=== PATIENT | female | born 1980 | race American Indian/Alaskan Native ===

== ENCOUNTER 2016-12-18 15:12 | Inpatient (IN) | payer MEDICARE ==
--- NOTE | 2016-12-18 17:05 | Emergency Department Report ---
HPI - General Time Seen by Provider: 12/18/16 16:47 - HPI HPI: Room 10 The patient is a 36-year-old female presenting with a chief complaint of chest pain. The patient states for 1 week she has had intermittent left-sided chest pain described as tightness associated with slight shortness of breath. Patient states she went to see her offset printer today (Dr. Sifuentes) when [facility] to the emergency department because her blood sugar was elevated. Patient states she has had pain in the back of her legs felt weak. Patient denies nausea/vomiting or pleurisy. Patient admits to occasional cough that is productive of yellow sputum for the past 2 days. The patient currently gives her chest pain a score of 8/10. The patient states her last stress test and cardiac catheterization occurred 8 years ago. Location: [see above] Duration: [see above] Quality: Tightness Severity: 8/10 Modifying factors: [see above] Context: [see above] Mode of transportation: [not driving] ED Past Medical Hx - Past Medical History Hx Hypertension: Yes Hx CVA: Yes Hx Diabetes: Yes Hx Deep Vein Thrombosis: Yes Hx Pulmonary Embolism: Yes Hx Renal Disease: Yes Hx Asthma: Yes Additional medical history: lupus, fibromyalgia, reynauds, hypothyroidism - Surgical History Hx Cholecystectomy: Yes Additional Surgical History: ivc filter - Family History Family history: no significant - Social History Smoking Status: Never Smoker Substance Use Type: None - Medications Home Medications: Home Medications Medication Instructions Recorded Confirmed Last Taken Type Albuterol *Only Ed* [Proventil 1 puff IH PRN PRN 03/24/14 03/24/14 Unknown History 0.5% NEBS] Albuterol [Proventil Tab] 1 tab PO DAILY 03/24/14 03/24/14 03/24/14 History Alendronate Sodium [Fosamax] 35 mg PO QWEEK 03/24/14 03/24/14 Unknown History FLUoxetine HCL [PROzac] 40 mg PO QDAY 03/24/14 03/24/14 03/24/14 History Famotidine [Pepcid] 30 mg PO DAILY 03/24/14 03/24/14 03/24/14 History Losartan [Cozaar] 100 mg PO QDAY 03/24/14 03/24/14 03/24/14 History Warfarin [Coumadin] 5 mg PO DAILY 03/24/14 03/24/14 03/24/14 History predniSONE [Deltasone] 10 mg PO DAILY 03/24/14 03/24/14 03/24/14 History Clonidine 0.2 mg PO HS 12/18/16 12/18/16 Unknown History Insulin Aspart See Protocol SUB-Q HS 12/18/16 12/18/16 Unknown History Insulin Glargine See Protocol SUB-Q DAILY 12/18/16 12/18/16 Unknown History Metoprolol 50 mg PO DAILY 12/18/16 12/18/16 Unknown History amLODIPine 10 mg PO DAILY 12/18/16 12/18/16 Unknown History ED Review of Systems ROS: Stated complaint: CHEST PAIN/HYPERGLYCEMIA Other details as noted in HPI Comment: All other systems reviewed and negative Constitutional: denies: chills, fever Eyes: denies: eye pain, eye discharge, vision change ENT: denies: ear pain, throat pain Respiratory: cough, shortness of breath Cardiovascular: chest pain Endocrine: no symptoms reported Gastrointestinal: denies: abdominal pain, nausea, diarrhea Genitourinary: denies: urgency, dysuria, discharge Musculoskeletal: denies: back pain, joint swelling, arthralgia Skin: denies: rash, lesions Neurological: denies: headache, weakness, paresthesias Psychiatric: denies: anxiety, depression Hematological/Lymphatic: denies: easy bleeding, easy bruising Physical Exam - Physical Exam Vital Signs: Vital Signs 12/18/16 16:29 Temperature 98.5 F Pulse Rate 82 Respiratory 16 Rate Blood Pressure 164/97 [Left] O2 Sat by Pulse 97 Oximetry Physical Exam: GENERAL: The patient is well-developed well-nourished female lying on stretcher not appearing to be in acute distress. [] HEENT: Normocephalic. Atraumatic. Extraocular motions are intact. Patient has moist mucous membranes. NECK: Supple. Trachea midline CHEST/LUNGS: Clear to auscultation. There is no respiratory distress noted. HEART/CARDIOVASCULAR: Regular. There is no tachycardia. There is no gallop rub or murmur. ABDOMEN: Abdomen is soft, nontender. Patient has normal bowel sounds. There is no abdominal distention. SKIN: There is no rash. There is no edema. There is no diaphoresis. NEURO: The patient is awake, alert, and oriented. The patient is cooperative. The patient has normal speech MUSCULOSKELETAL: There is no evidence of acute injury. ED Course Vital Signs 12/18/16 16:29 Temperature 98.5 F Pulse Rate 82 Respiratory 16 Rate Blood Pressure 164/97 [Left] O2 Sat by Pulse 97 Oximetry ED Medical Decision Making - Lab Data Result diagrams: 12/18/16 17:25 12/18/16 17:25 Laboratory Tests 12/18/16 12/18/16 12/18/16 17:25 17:25 17:25 WBC 10.2 RBC 3.45 L Hgb 10.6 Hct 32.7 MCV 95 MCH 31 MCHC 33 RDW 12.5 L Plt Count 308 Lymph % (Auto) 5.4 L [place]idan % (Auto) 6.0 Eos % (Auto) 0.4 Baso % (Auto) 0.3 Lymph # 0.6 L Sheridan # 0.6 Eos # 0.0 Baso # 0.0 Seg Neutrophils % 87.9 H Seg Neutrophils # 9.0 H PT INR APTT D-Dimer VBG pH 7.416 Sodium 136 L Potassium 4.9 Chloride 97.5 L Carbon Dioxide 22 Anion Gap 21 BUN 21 H Creatinine 1.1 Estimated GFR > 60 BUN/Creatinine Ratio 19.09 Glucose 406 H Calcium 8.8 Troponin T < 0.010 12/18/16 17:25 WBC RBC Hgb Hct MCV MCH MCHC RDW Plt Count Lymph % (Auto) [place] % (Auto) Eos % (Auto) Baso % (Auto) Lymph # [place]idan # Eos # Baso # Seg Neutrophils % Seg Neutrophils # PT 12.5 INR 0.94 APTT 22.2 L D-Dimer 180.39 VBG pH Sodium Potassium Chloride Carbon Dioxide Anion Gap BUN Creatinine Estimated GFR BUN/Creatinine Ratio Glucose Calcium Troponin T - EKG Data -: EKG Interpreted by Me EKG shows normal: sinus rhythm Rate: normal - EKG Data When compared to previous EKG there are: changes noted Interpretation: nonspecific ST-T wave orquidea (new T-wave inversion in lead V2 when compared to previous EKG dated 03/25/2014) - Differential Diagnosis ACS, PE, pericarditis, GERD Critical care attestation.: If time is entered above; I have spent that time in minutes in the direct care of this critically ill patient, excluding procedure time. ED Disposition Clinical Impression: Chest pain, Hyperglycemia Disposition: OP ADMITTED IP TO THIS HOSP Is pt being admited?: Yes Does the pt Need Aspirin: Yes Condition: Fair Instructions: Chest Pain (ED) Referrals: PRIMARY CARE,MD [Primary Care Provider] - 3-5 Days Time of Disposition: 18:29 (Dr Lu notified)
--- NOTE | 2016-12-18 17:37 | Admit Criteria Form ---
Admission Criteria Documentation: CHEST PAIN Clinical Indications for Admission to Inpatient Care (Place 'X' for any and all applicable criteria): Admission is indicated for chest pain and ANY ONE of the following(1)(2)(3)(4)(5 ): [ ]I. Angina with acute coronary syndrome (Also use Myocardial Infarction or Angina guideline) [ ]II. Hemodynamic instability [X]III. Angina needing acute intervention as indicated by ALL of the following( 11)(12): [ ]a) Unstable angina is present as indicated by angina that is ANY ONE of the following: [ ]i) New onset [ ]ii) Nocturnal [ ]iii) Prolonged at rest [ ]iv) Progressive [X]b) Angina warrants acute intervention as indicated by ANY ONE of the following: [ ]i) Recurrent angina (e.g, not responding as previously to treatment) [ ]ii) Angina at rest or with low-level activities despite initial medical therapy [ ]iii) New or presumably new ST-segment depression on ECG [ ]iv) Signs or symptoms of heart failure (eg, dyspnea, pulmonary edema) [ ]v) New or worsening mitral regurgitation [ ]vi) Hemodynamic instability [ ]vii) Dangerous arrhythmia (eg, sustained ventricular tachycardia) [ ]viii) History of percutaneous coronary intervention within 6 months [ ]ix) History of coronary artery bypass graft surgery [ ]x) CANELO risk score of 2 or greater[A] [X]xi) History of Diabetes(14) [ ]xii) High-risk cardiac ischemia findings on noninvasive testing (e.g, echocardiogram, treadmill testing, nuclear scan) [ ]xiii) Chronic renal insufficiency (ie, estimated GFR less than 60 mL/min/1.732m) [ ]xiv) Left ventricular ejection fraction less than 40% [ ]IV. Evidence of MN (eg, cardiac biomarkers positive, ST-segment elevation on ECG) also use Myocardial Infarction Criteria Form. [ ]V. Pulmonary edema [ ]. Respiratory distress [ ]VII. Chest pain indicative of serious diagnosis other than coronary artery disease (eg, aortic dissection) [ ]VIII. Contraindications and/or Inappropriate clinical situations for Observational Care in patients with Chest Pain, when ANY ONE of the following is required: [ ]a) Patient with risk factor for pulmonary embolism, acute coronary syndrome and myocardial infarction (18) [ ]b) Patient with Pulmonary embolism require an average LOS of 4.3 days, therefore emergency department observation management is inappropriate 18,23 [ ]c) Painful condition/s in the elderly, have the highest rate of recidivism after emergency department observation management (10.8%) 20,21,22 [ ]d) Elevated cardiac biomarker requires intensive and exhaustive care (19) [ ]IX. General contraindications and/or Inappropriate clinical situations for Observational Care in patients with Chest Pain, when ANY ONE of the following is required: [ ]a) Prediction of prolongation of LOS based on ANY ONE of the following may be considered as a contraindication for observational care 2, 3, 4, 5, 6, 7, 8, 9, 10, 11 [ ]i) Age > 65 yrs. [ ]ii) Patient arriving by ambulance [ ]iii) Patient with high acuity [ ]iv) Patient requiring vital sign monitoring [ ]v) Patient on IV medication [ ]b) Systolic blood pressures 180mmHg 3,12 [ ]c) Patient with altered mental status including delirium and other alteration of consciousness, (3) [ ]d) Patient whose discharge disposition will be to a prison home or rehabilitation home should not be managed in Emergency Department Observation Unit. CMS rule requires 3 days hospital stay before such placement. 3,13 [ ]e) Patient with failure to thrive due to broad array of etiologies 3,16,17 [ ]f) Inability to ambulate 3,14 Extended stay beyond goal length of stay may be needed for (1)(28): [ ]a) Specific condition diagnosed after evaluation (eg, pulmonary embolism, aortic dissection) [ ]b) Unstable angina [ ]c) Continued suspicion of acute coronary syndrome with inability to complete needed cardiac evaluation (eg, patient clinically unable to undergo stress testing) [ ]d) Myocardial infarction (Contents from ANGINA and CHEST PAIN clinical indications for admission to inpatient care have been integrated in this form) The original [employer] [employer] content created by [email or web address] has been revised. The portions of the content which have been revised are identified through the use of italic text or in bold, and [facility] [email or web address] has neither reviewed nor approved the modified material. All other unmodified content is copyright [employer] [employer]. Please see references footnoted in the original [employer] [employer] edition 2016 Admission Criteria Met: Yes
[2016-12-18 17:42] LABS: Basophils % (Auto) 0.3 % (0.0-1.8); Eosinophils % (Auto) 0.4 % (0.0-4.3); Hematocrit 32.7 % (30.3-42.9); Hemoglobin 10.6 gm/dl (10.1-14.3); Mean Corpuscular HGB Conc 33 % (30-34); Mean Corpuscular Hemoglobin 31 pg (28-32); Mean Corpuscular Volume 95 fl (79-97); Platelet Count 308 K/mm3 (140-440); Red Blood Count 3.45 M/mm3 (3.65-5.03); Red Cell Distribution Width 12.5 % (13.2-15.2); White Blood Count 10.2 K/mm3 (4.5-11.0)
[2016-12-18 17:58] LABS: INR 0.94 (0.87-1.13); Partial Thromboplastin Time 22.2 Sec. (24.2-36.6)
[2016-12-18 18:04] LABS: Anion Gap 21 mmol/L; BUN/Creatinine Ratio 19.09; Blood Urea Nitrogen 21 mg/dL (7-17); Calcium 8.8 mg/dL (8.4-10.2); Carbon Dioxide 22 mmol/L (22-30); Chloride 97.5 mmol/L (98-107); Glucose 406 mg/dL (65-100); Potassium 4.9 mmol/L (3.6-5.0); Sodium 136 mmol/L (137-145)
[2016-12-18] MEDS ORDERED: ASPIRIN PO ONE (18:11)
[2016-12-18] MEDS ORDERED: MORPHINE IV ONE (18:18)
[2016-12-18] MEDS ORDERED: ZOFRAN IV ONE (18:25)
[2016-12-18] MEDS ORDERED: SODIUM CHLORIDE FLUSH SYRINGE 10 ML IV PRN (23:03)
--- NOTE | 2016-12-18 23:03 | Event Note ---
Date: 12/18/16 See history and physical in H&P. Acute coronary syndrome rule out NE protocol. Lexiscan in the morning. Uncontrolled diabetes. Adjust dosage. Hypertension Lupus Gastroesophageal reflux disease Depression Osteoporosis Anticoagulation with warfarin
[2016-12-18] MEDS ORDERED: ALBUTEROL IH PRN (23:06)
[2016-12-18] MEDS ORDERED: PROVENTIL IH PRN (23:20)
[2016-12-18] MEDS ORDERED: NITROSTAT SL PRN (23:32)
[2016-12-18] MEDS: NOVOLOG SUB-Q SCH (23:50)
[2016-12-19 00:06] LABS: Creatine Kinase 48 units/L (30-135)
--- NOTE | 2016-12-19 00:07 | History and Physical Report ---
CHIEF COMPLAINT: Left-sided chest pain. HISTORY OF PRESENT ILLNESS: A 36-year-old with multiple medical problems including lupus, insulin-dependent diabetes, hypertension sent by the Cardiology office for high blood sugars and left-sided chest pain. The patient has been having intermittent chest pain for the last one week described as tightness 5/10 on a scale of 1/10. The patient also has high blood sugar also pain in all the joints. The patient has lupus, occasional cough productive of yellow sputum for 2 days. No diaphoresis. No palpitations. No exacerbating factors. The patient's pain ranges from 5-8 on a scale of 1-10. PAST MEDICAL HISTORY: As mentioned, hypertension, cerebrovascular accident, insulin-dependent diabetes, deep vein thrombosis, pulmonary embolism, end-stage chronic kidney disease, asthma, lupus, fibromyalgia, Raynaud's disease, and hypothyroidism. PAST SURGICAL HISTORY: IVC filter, cholecystectomy. FAMILY HISTORY: Hypertension. SOCIAL HISTORY: Does not smoke. No alcohol, no recreational drugs. CURRENT MEDICATIONS: Proventil nebulizer treatments q.i.d. p.r.n., Proventil tablet 1 tablet daily, furosemide 35 mg q. weekly, Prozac 40 mg p.o. daily, famotidine ___ mg p.o. daily, losartan 100 mg p.o. daily, Coumadin 5 mg p.o. daily, prednisone 10 mg p.o. daily, clonidine 0.2 p.o. daily, insulin dosage not known, metoprolol 50 mg daily, amlodipine 10 mg daily. REVIEW OF SYSTEMS: Significant for constitutional muscle aches all over. PHYSICAL EXAMINATION: GENERAL: No weight loss, no weight gain, no fever, no chills. HEENT: No sore throat. No postnasal drip. NECK: No neck stiffness. CARDIOVASCULAR AND RESPIRATORY: Chest pain left-sided present. 5-8 on a scale of 1-10, intermittent in nature for 1 week. No diaphoresis. No shortness of breath. GASTROINTESTINAL: No nausea, no vomiting, no diarrhea. GENITOURINARY: No dysuria, no flank pain. MUSCULOSKELETAL: Has joint pains all over and muscle pains all over. SKIN: No rashes. CENTRAL NERVOUS SYSTEM: No syncope, no seizures. PSYCHIATRIC: Denies anxiety, but depression. HEMATOLOGIC/LYMPHATIC: Denies easy bleeding or bruising. A 14-point review of systems done. PHYSICAL EXAMINATION: GENERAL: Well-developed, well-nourished female moderately obese. VITAL SIGNS: Temperature 98.5, pulse is 82, respirations 16, blood pressure 164/97, and sats are 97%. HEENT: Unremarkable. Pupils equal and reactive. NECK: Supple, no lymphadenopathy, no thyromegaly. LUNGS: Clear to auscultation and percussion. Good air entry. CARDIOVASCULAR: S1, S2 heard. No gallop, no murmur, no rub. Apical impulse in left fifth intercostal space and midclavicular line. ABDOMEN: Soft and benign. No hepatosplenomegaly. No guarding, no rigidity. Hernial orifices are normal. EXTREMITIES: Good pedal pulses. No pedal edema. Joints are normal. CENTRAL NERVOUS SYSTEM: Alert and oriented x 4, nonfocal exam. Sensory system normal. Cranial nerves are normal. SKIN: Normal. LABORATORY DATA: White count is 10,200, H and H is 10.6 and 32.7, platelet count 308,000. Sodium is 136, potassium is 4.9, chloride is 97.5, bicarbonate is 22, BUN and creatinine 21 and 1.1, glucose is 104.6. EKG shows sinus rhythm. Nonspecific ST-T wave changes, no acute changes. ASSESSMENT AND PLAN: 1. Acute coronary syndrome, rule out myocardial infarction, chest pain protocol. Lexiscan in the morning. 2. Uncontrolled insulin-dependent diabetes. The patient was started on high-dose sliding scale protocol. Check hemoglobin A1c. Adjust insulin dose at the time of discharge. 3. Asthma. Continue albuterol. 4. Osteoporosis. Continue Fosamax 35 mg q. weekly. 5. Depression. Continue Prozac 40 mg daily. 6. Hypertension. Continue Cozaar 100 mg daily and clonidine 0.2 p.o. at bedtime and metoprolol 50 mg daily, amlodipine 10 mg p.o. daily. 7. Anticoagulation. Continue Coumadin 5 mg daily. 8. Gastroesophageal reflux disease. Continue famotidine ___ mg p.o. daily. 9. Deep venous thrombosis prophylaxis. The patient not started on Lovenox because of Coumadin. JOB# [id number] VSM/NTS
[2016-12-19 00:08] LABS: Creatine Kinase MB < 1.0 ng/mL (0.0-4.0)
[2016-12-19] MEDS: TYLENOL PO PRN (00:15)
[2016-12-19] MEDS ORDERED: NOVOLOG SUB-Q SCH ×3 (07:30→22:00)
[2016-12-19] MEDS ORDERED: INSULIN ASPART 12 UNIT SUB-Q SCH (07:30)
[2016-12-19 07:48] LABS: Creatine Kinase 49 units/L (30-135)
[2016-12-19 08:10] LABS: Creatine Kinase MB < 1.0 ng/mL (0.0-4.0)
[2016-12-19] MEDS ORDERED: LEXISCAN IV ONE ×2 (08:10→08:25)
[2016-12-19] MEDS ORDERED: COZAAR PO ONE ×2 (08:24→08:30)
[2016-12-19] MEDS: NOVOLOG SUB-Q SCH ×7 (08:30→21:31)
[2016-12-19] MEDS ORDERED: NORVASC PO ONE (08:30)
[2016-12-19] MEDS ORDERED: LOPRESSOR PO ONE (08:30)
[2016-12-19] MEDS: MORPHINE IV PRN ×3 (08:38→19:56)
--- NOTE | 2016-12-19 09:56 | XRay Report ---
AP CHEST: HISTORY: chest pain AP view of the chest demonstrates a normal mediastinal and cardiac contour with clear lungs and normal bony and soft tissue structures. IMPRESSION: Unremarkable AP chest.
[2016-12-19] MEDS ORDERED: INSULIN GLARGINE SUB-Q SCH (10:00)
[2016-12-19] MEDS ORDERED: PROVENTIL PO SCH (10:00)
--- NOTE | 2016-12-19 11:42 | Treadmill Report ---
The patient was brought to the cardiology lab and nuclear stress test is performed by administering Lexiscan. The patient tolerated the procedure well. Post-stress images reveal fairly homogeneous distribution of the isotope. Mild apical reversibility is noted and this is of questionable significance. Excellent systolic function is noted with no wall motion abnormalities. The ejection fraction is about 70%. IMPRESSION: 1. Excellent systolic function with no wall motion abnormalities. 2. Minimal apical reversibility if of questionable significance. 3. Suggest clinical correlation. JOB# [id number] KBM/NTS
--- NOTE | 2016-12-19 12:04 | Event Note ---
Date: 12/19/16 Cardiology note dictated. #1 chest pain Patient complains of chest pain for the last 2 weeks but this is somewhat atypical. Patient had a stress thallium test which is noted to be essentially negative except for mild apical abnormality. Excellent systolic function is noted. Continue medical management #2 uncontrolled hypertension Add hydralazine for better blood pressure control #3 uncontrolled diabetes #4 systemic lupus #5 history of cerebrovascular accident #6 history of recurrent DVT and pulmonary embolism status post IVC filter placement. Possible recurrent DVT patient is currently on Coumadin and continue the same noncompliance with Coumadin note.. Patient is strongly advised to continue the medications appropriately. #7 history of renal failure currently renal function is stable. #8 status post cholecystectomy #9 history of peptic ulcer disease #[address] Snyder problem with participate in the care of this young lady will follow with you. BK. Collins
[2016-12-19] MEDS: PEPCID PO SCH (12:29)
[2016-12-19] MEDS: DELTASONE PO SCH (12:31)
[2016-12-19] MEDS: PROzac PO SCH (12:31)
[2016-12-19] MEDS: APRESOLINE PO SCH ×2 (13:24→21:27)
--- NOTE | 2016-12-19 13:24 | Progress Note ---
Assessment and Plan Assessment and plan: Patient is a 36-year-old female with history of lupus, insulin-dependent diabetes mellitus, hypertension presents to the hospital with complaint of chest pain generalized body pain with complaint of possible flareup of lupus. She unfortunately is noncompliant with her medications was noted to have severely elevated hypertension. She did proceed to a stress test and also an echocardiogram which were unremarkable except for a mild apical abnormality noted by cardiology. No intervention is recommended at this time. * Atypical chest pain likely costochondritis * SLE ? flare * DVT, pulmonary embolism status post IVC filter * Hypertensive urgency * Morbid obesity BMI of 40 * Uncontrolled diabetes mellitus * Asthma * Depression * Fibromyalgia * Hypertension * Secondary coagulopathy patient on Coumadin noncompliant subtherapeutic INR * Peptic ulcer disease * CKD stable * History of CVA Plan * Continue supportive care, cardiac input appreciated. * Continue home blood pressure medications. Continue addition of hydralazine by cardiology. Extensive discussion with the patient considering history of CVA DVTs about compliance of medication patient verbalized understanding * Monitor for the next 24 hours of blood pressure improved will discharge home. * Adjust pain medications * May need steroids for short duration. * Adjust insulin * DVT and GI prophylaxis History Interval history: Patient seen and examined, in no acute distress, still complaining of chest pain , joint pain, back pain, and calf pain. Reports generalized body swelling Hospitalist Physical - Constitutional Vitals: Temp Pulse Resp BP Pulse Ox 98.1 F 78 20 174/103 98 12/19/16 07:00 12/19/16 10:34 12/19/16 07:00 12/19/16 10:34 12/19/16 07:00 General appearance: Present: no acute distress, well-nourished, other (obese) - EENT Eyes: Present: PERRL, EOM intact ENT: hearing intact, clear oral mucosa - Neck Neck: Present: supple, normal ROM - Respiratory Respiratory effort: normal - Cardiovascular Rhythm: regular Heart Sounds: Present: S1 & S2 - Extremities Extremities: no ischemia, pulses intact, pulses symmetrical Peripheral Pulses: within normal limits - Abdominal General gastrointestinal: soft, non-tender, tender - Integumentary Integumentary: Present: clear, warm - Psychiatric Psychiatric: appropriate mood/affect - Neurologic Neurologic: CNII-XII intact - Allied Health Allied health notes reviewed: nursing Results - Labs CBC & Chem 7: 12/18/16 17:25 12/18/16: Labs: Laboratory Last Values WBC 10.2 K/mm3 (4.5-11.0) 12/18/16: RBC 3.45 M/mm3 (3.65-5.03) L 12/18/16: Hgb 10.6 gm/dl (10.1-14.3) 12/18/16: Hct 32.7 % (30.3-42.9) 12/18/16: MCV 95 fl (79-97) 12/18/16: MCH 31 pg (28-32) 12/18/16: MCHC 33 % (30-34) 12/18/16: RDW 12.5 % (13.2-15.2) L 12/18/16: Plt Count 308 K/mm3 (140-440) 12/18/16: Lymph % (Auto) 5.4 % (13.4-35.0) L 12/18/16: [place] % (Auto) 6.0 % (0.0-7.3) 12/18/16: Eos % (Auto) 0.4 % (0.0-4.3) 12/18/16: Baso % (Auto) 0.3 % (0.0-1.8) 12/18/16: Lymph # 0.6 K/mm3 (1.2-5.4) L 12/18/16: [place] # 0.6 K/mm3 (0.0-0.8) 12/18/16: Eos # 0.0 K/mm3 (0.0-0.4) 12/18/16: Baso # 0.0 K/mm3 (0.0-0.1) 12/18/16: Seg Neutrophils % 87.9 % (40.0-70.0) H 12/18/16: Seg Neutrophils # 9.0 K/mm3 (1.8-7.7) H 12/18/16: PT 12.5 Sec. (12.2-14.9) 12/18/16 17: INR 0.94 (0.87-1.13) 12/18/16 17:25 APTT 22.2 Sec. (24.2-36.6) L 12/18/16 17:25 D-Dimer 180.39 ng/mlDDU (0-234) 12/18/16 17:25 VBG pH 7.416 (7.320-7.420) 12/18/16 17:25 Sodium 136 mmol/L (137-145) L 12/18/16 17:25 Potassium 4.9 mmol/L (3.6-5.0) 12/18/16 17:25 Chloride 97.5 mmol/L (98-107) L 12/18/16 17:25 Carbon Dioxide 22 mmol/L (22-30) 12/18/16 17:25 Anion Gap 21 mmol/L 12/18/16 17:25 BUN 21 mg/dL (7-17) H 12/18/16 17:25 Creatinine 1.1 mg/dL (0.7-1.2) 12/18/16 17:25 Estimated GFR > 60 ml/min 12/18/16 17:25 BUN/Creatinine Ratio 19.09 % 12/18/16 17:25 Glucose 406 mg/dL (65-100) H 12/18/16 17:25 POC Glucose 362 (70-105) H 12/18/16 23:26 Calcium 8.8 mg/dL (8.4-10.2) 12/18/16 17:25 Total Creatine Kinase 49 units/L (30-135) 12/19/16 07:04 CK-MB (CK-2) < 1.0 ng/mL (0.0-4.0) 12/19/16 07:04 CK-MB (CK-2) Rel Index 2.0 (0-4) 12/19/16 07:04 Troponin T < 0.010 ng/mL (0.00-0.029) 12/19/16 07:04 - Imaging and Cardiology Chest x-ray: image reviewed (negative)
[2016-12-19] MEDS ORDERED: COUMADIN PO SCH (17:00)
--- NOTE | 2016-12-19 19:32 | Consultation ---
CARDIOLOGY EVALUATION HISTORY OF PRESENT ILLNESS: This is a 36-year-old female seen for cardiac evaluation because of chest pain. The patient has been having intermittent chest pains for the past 2 weeks, described as a dull aching discomfort at times related to activity at other times has no relationship to any activity. She also complains about some right-sided pain falls periodically. The patient does complaint about a periodic exertional dyspnea. The patient is a nonsmoker and nonalcoholic. Known to have hypertension for 10 years, diabetes for about 5 years. The patient has multiple medical issues. She was apparently diagnosed to have lupus and following that she had to use steroids and according to her this is what started her problem with the diabetes. The patient had previous cerebrovascular accidents in 2003 and 2012. In 2004, she had DVT and pulmonary embolism and she had recurrent DVT and she was advised to stay on anticoagulants indefinitely. However, two weeks ago she ran out of Coumadin and she stopped taking her Coumadin. She complains about leg pains. She is also known to have chronic kidney disease. The patient also had a cholecystectomy in the past. IVC filter has been placed in the past. REVIEW OF SYSTEMS: HEAD, EYES, EARS, NOSE AND THROAT: No symptoms. ENDOCRINE: The patient is known to have diabetes. RESPIRATORY: She gives history of COPD and apparently the problem started in 2012 when she had pneumonia and respiratory failure ended up being on a ventilator. Subsequent to that, she has been having exertional dyspnea. GASTROINTESTINAL: She gives history of peptic ulcer disease in the past and had cholecystectomy. GENITOURINARY: No symptoms. CENTRAL NERVOUS SYSTEM: The patient had a cerebrovascular accident in the past x 2 as mentioned earlier. SKIN: No symptoms. PSYCHIATRIC: No symptoms. HEME/ONC: No symptoms. PHYSICAL EXAMINATION: GENERAL: Adult moderately obese female, in no acute distress, pleasant and cooperative. HEAD, EYES, EARS, NOSE, AND THROAT: Unremarkable. NECK: Supple. No thyromegaly. Both carotids are palpable and equal. Neck veins are flat. CHEST: Symmetrical. LUNGS: Clear. HEART: S1, S2 are heard well. No S3. No significant murmurs are appreciated. ABDOMEN: Soft, nontender. EXTREMITIES: Increased pigmentation is noted. Both lower extremities more so on the right side. The patient does have mild calf tenderness bilaterally. This is more on the right side. DIAGNOSTIC STUDIES: EKG shows sinus rhythm with no acute abnormalities, cardiac enzymes are noted to be negative. LABORATORY DATA: Hemoglobin 10.6, hematocrit 32.7, INR 0.94. Sodium 136, potassium 4.9, BUN 21, creatinine 1.1, blood sugar 406. Cardiac enzymes are negative. CURRENT CARDIAC MEDICATIONS: Amlodipine 10 mg, clonidine 0.2, losartan 100 mg daily, metoprolol 50 mg twice a day, nitroglycerin p.r.n., and warfarin 7.5 daily. IMPRESSION: 1. Chest pain, pain itself is somewhat atypical. The patient had a nuclear stress test done today that shows excellent systolic function with no evidence of significant ischemia. Mild apical reversibility is noted and this is of questionable significance. Continue medical management for the time being. 2. Hypertension. Blood pressure is doing better than before, but not well-controlled as of yet. I will add hydralazine 25 mg 3 times a day. 3. Diabetes, uncontrolled. 4. Systemic lupus. 5. History of renal failure. 6. History of chronic obstructive pulmonary disease. 7. Recurrent DVT and pulmonary embolism medication noncompliance. PLAN: The patient is seen for cardiac evaluation. Clinically, she appears to be stable. So far, cardiac status is stable. Today's stress thallium test is noted to be negative for significant ischemia. In view of the atypical chest pain and only mild abnormalities on the scan, we will continue medical management. The patient is advised strongly to be compliant with medications. The patient will be followed closely along with you. Thank you, Dr. Lu for allowing me to participate in the care of this pleasant young lady. JOB# [id number] MARQUISE/NTS
[2016-12-19 20:05] LABS: Bilirubin,Urine NEG (Negative); Blood,Urine LG (Negative); Ketones,Urine NEG (Negative); Leukocyte Esterase,Urine NEG (Negative); Nitrite,Urine NEG (Negative); Protein,Urine <15 mg/dL mg/dL (Negative); Urobilinogen,Urine < 2.0 mg/dL (<2.0)
[2016-12-19] MEDS: LOPRESSOR PO SCH (21:28)
[2016-12-19] MEDS: CATAPRES PO SCH (21:28)
[2016-12-19] MEDS ORDERED: CATAPRES PO SCH (22:00)
[2016-12-19] MEDS ORDERED: LEVEMIR SUB-Q SCH (22:00)
[2016-12-20] MEDS: MORPHINE IV PRN ×2 (02:09→09:10)
[2016-12-20] MEDS: APRESOLINE PO SCH ×2 (05:54→14:24)
[2016-12-20 05:57] LABS: INR 0.97 (0.87-1.13)
[2016-12-20] MEDS: NOVOLOG SUB-Q SCH ×4 (08:00→13:57)
--- NOTE | 2016-12-20 09:56 | Discharge Summary ---
Providers - Providers Date of Admission: 12/18/16 18:25 Date of discharge: 12/20/16 Attending physician: BRANDO BURKS MD 12/18/16 Consult to Cardiac Rehabilitation [CONS] Routine Reason For Exam: Phase I 12/18/16 23:03 Consult to Physician [CONS] Routine Consulting Provider: CARLINE FORD Reason For Exam: chest pain Place consult to:: CARLINE FORD Notified:: [facility] FROM ANSWERING SERVICE Phone number called:: [phone] Was contact made?: Yes Time called:: 07:02 12/19/16 05:51 Consult to Wound/ET Nurse [CONS] Routine Reason For Exam: wound eval Primary care physician: [employer] LE[employer]ER Hospitalization Reason for admission: chest pain Condition: Stable Hospital course: Patient is a 36-year-old female with history of lupus, insulin-dependent diabetes mellitus, hypertension presents to the hospital with complaint of chest pain generalized body pain with complaint of possible flareup of lupus. She unfortunately is noncompliant with her medications was noted to have severely elevated hypertension. She did proceed to a stress test and also an echocardiogram which were unremarkable except for a mild apical abnormality noted by cardiology. No intervention is recommended at this time. Patient was monitored due to elevated BP. extensive discussion for about 20 mins was had with the patient considering history of CVA DVTs about compliance of medication patient verbalized understanding. BP is improved. all meds renewed. she is to follow with PCP for INR checks, Pt understands this. 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 Warfarin importance was stressed. Discharge diagnosis * Atypical chest pain likely costochondritis * SLE ? flare * DVT, pulmonary embolism status post IVC filter * Hypertensive urgency * Morbid obesity BMI of 40 * Uncontrolled diabetes mellitus * Asthma * Depression * SOO * Fibromyalgia * Hypertension * Secondary coagulopathy patient on Coumadin noncompliant subtherapeutic INR * Peptic ulcer disease * CKD stable * History of CVA Disposition: DISCHARGED TO HOME OR SELFCARE Time spent for discharge: 35 MINS Core Measure Documentation - Palliative Care Palliative Care/ Comfort Measures: Not Applicable - Core Measures Any of the following diagnoses?: none - VTE Discharge Requirements Deep Vein Thrombosis/Pulmonary Embolism Present on Admission: Yes Has pt received <5 days of overlap therapy or INR<2.0: Yes Anticoagulant overlap therapy prescribed at discharge: No Contraindication No Overlap Therapy order at DC: Patient Noncompliance (patient with svt, also non compliant. also has an IVC filter.) Exam - Physical Exam Narrative exam: VITAL SIGNS: Reviewed. GENERAL: The patient appeared well nourished and normally developed, obese. Vital signs as documented. HEAD: No signs of head trauma. EYES: Pupils are equal. Extraocular motions intact. EARS: Hearing grossly intact. MOUTH: Oropharynx is normal. NECK: No adenopathy, no JVD. CHEST: Chest with clear breath sounds bilaterally. No wheezes, rales, or rhonchi. CARDIAC: Regular rate and rhythm. S1 and S2, without murmurs, gallops, or rubs. VASCULAR: No Edema. Peripheral pulses normal and equal in all extremities. ABDOMEN: Soft, without detectable tenderness. No sign of distention. No rebound or guarding, and no masses palpated. Bowel Sounds normal. MUSCULOSKELETAL: Good range of motion of all major joints. Extremities without clubbing, cyanosis or edema. NEUROLOGIC EXAM: Alert and oriented x 3. No focal sensory or strength deficits. Speech normal. Follows commands. PSYCHIATRIC: Mood normal. SKIN: No rash or lesions. - Constitutional Vitals: Temp Pulse Resp BP Pulse Ox 97.5 F L 60 18 141/73 98 12/20/16 08:00 12/20/16 08:00 12/20/16 08:00 12/20/16 08:00 12/20/16 08:00 Plan Activity: advance as tolerated, fall precautions Diet: low fat, diabetic Special Instructions: record daily BP diary, record blood sugar diary Additional Instructions: MUST FOLLOW WITH PCP FOR INR CHECK Q3 DAYS UNTIL STABLE Follow up with: PRIMARY CARE, [Primary Care Provider] - 3-5 Days Forms: Warfarin Discharge Instruction Prescriptions: cloNIDine [Catapres] 0.2 mg PO BID #30 tablet hydrALAZINE [Apresoline TAB] 25 mg PO Q8HR #90 tablet predniSONE [Deltasone] 20 mg PO DAILY #30 tablet Warfarin [Coumadin] 7.5 mg PO DAILY@1700 #30 tablet
[2016-12-20] MEDS ORDERED: NORVASC PO SCH (10:00)
[2016-12-20] MEDS ORDERED: LOPRESSOR PO SCH (10:00)
[2016-12-20] MEDS ORDERED: COZAAR PO SCH (10:00)
[2016-12-20] MEDS: DELTASONE PO SCH (10:57)
[2016-12-20] MEDS: PROzac PO SCH (10:57)
[2016-12-20] MEDS: PEPCID PO SCH (10:57)
[2016-12-20] MEDS: CATAPRES PO SCH (10:59)
[2016-12-20] MEDS: LOPRESSOR PO SCH (10:59)
--- NOTE | 2016-12-20 13:01 | Progress Note ---
Assessment and Plan Atypical pleuritic CP - Could be due to Lupus itself. H/O GERD+ BP under control. Also has Sleep apnea (not adequately treated). Pt has to loose weight. SOO has to be treated adequately.Cleared to D/C home from a cardiac standpoint.F /U with in office in 2 to 3 weeks. - Patient Problems (1) Morbid obesity with BMI of 40.0-44.9, adult Current Visit: Yes Status: Chronic (2) Hyperglycemia Current Visit: Yes Status: Acute (3) Diabetes Current Visit: No Status: Chronic Qualifiers: Diabetes mellitus type: D Diabetes mellitus complication status: D Diabetes mellitus complication detail: D Diabetic retinopathy severity: D Proliferative retinopathy type: P Diabetes mellitus macular edema: D Diabetes mellitus termite renewal inspector insulin use: D Laterality: L Chronic kidney disease stage: C (4) HTN (hypertension) Current Visit: No Status: Chronic Qualifiers: Hypertension type: H (5) SLE (systemic lupus erythematosus) Current Visit: No Status: Chronic (6) SOO (obstructive sleep apnea) Current Visit: Yes Status: Chronic Subjective Date of service: 12/20/16 Interval history: C/O atypical L chest pains.No ischemia in stress myocardial scan.CP increases on breathing ? pleuritic. Objective Vital Signs Temp Pulse Pulse Pulse Resp BP BP 12/20/16 10:59 60 141/73 12/20/16 10:58 60 141/73 12/20/16 10:57 60 141/73 12/20/16 08:00 97.5 F L 60 18 141/73 12/20/16 05:41 97.9 F 69 20 133/92 12/20/16 01:00 97.9 F 69 20 118/69 12/19/16 20:59 98.1 F 69 20 185/83 12/19/16 19:55 80 12/19/16 16:30 98 F 73 20 183/93 12/19/16 13:24 65 178/99 Pulse Ox 12/20/16 10:59 12/20/16 10:58 12/20/16 10:57 12/20/16 08:00 98 12/20/16 05:41 98 12/20/16 01:00 96 12/19/16 20:59 98 12/19/16 19:55 12/19/16 16:30 12/19/16 13:24 - Physical Examination General: No Apparent Distress, Other (morbidly obese.) HEENT: Positive: PERRL, EOMI, Normocephaly, Mucus Membranes Moist Neck: Positive: neck supple, trachea midline Cardiac: Positive: Reg Rate and Rhythm Lungs: Positive: clear to auscultation, Normal Breath Sounds Neuro: Positive: Grossly Intact Abdomen: Positive: Soft, Active Bowel Sounds Skin: Positive: Clear. Negative: Rash Musculoskeletal: No Fluid Collection, No Pain, Normal Range of Motion Extremities: Present: normal, upper extr. pulses, lower extr. pulses. Absent: edema - Labs and Meds Coagulation 12/20/16 Range/Units 05:23 PT 12.8 (12.2-14.9) Sec. INR 0.97 (0.87-1.13) - Imaging and Cardiology EKG: report reviewed, image reviewed - Telemetry EKG Rhythm: Sinus Rhythm
[2016-12-20] MEDS: TYLENOL PO PRN (14:21)
[2016-12-20 14:25] VITALS: BP 123/65
--- NOTE | 2016-12-21 07:50 | Vascular Lab Report ---
LOWER EXTREMITY VENOUS DUPLEX: REASON FOR EXAM: History of DVT. COMMENTS ON THE RIGHT: All veins visualized are freely compressible without evidence of internal echogenicity. Flow is spontaneous and phasic throughout. Thrombus noted in the greater saphenous vein from the knee to the thigh COMMENTS ON THE LEFT: All veins visualized are freely compressible without evidence of internal echogenicity. Flow is spontaneous and phasic throughout. IMPRESSION: No evidence of acute or chronic deep venous thrombosis in either lower extremity. Superficial thrombophlebitis in the right lower extremity
[2016-12-23 01:03] LABS: B-Hydroxybutyrate TNR mmol/L (0.2 - 0.28)
[2016-12-25] MEDS ORDERED: FOSAMAX PO SCH (10:00)
== END 2016-12-20 15:15 | disposition home or self-care (01) | DRG 206 ==
LOC: ED 15:12 → 4A 18:25
PROVIDERS: ADMIT Internal Medicine; ATTEND Internal Medicine
DX: M94.0 Chondrocostal junction syndrome [Tietze] (principal); Z68.41 Body mass index [BMI] 40.0-44.9, adult; D68.9 Coagulation defect, unspecified; E11.65 Type 2 diabetes mellitus with hyperglycemia; M32.9 Systemic lupus erythematosus, unspecified; M79.7 Fibromyalgia; E03.9 Hypothyroidism, unspecified; K21.9 Gastro-esophageal reflux disease without esophagitis; M81.0 Age-related osteoporosis without current pathological fracture; I16.0 Hypertensive urgency; E66.01 Morbid (severe) obesity due to excess calories; F32.9 Major depressive disorder, single episode, unspecified; K27.9 Peptic ulcer, site unspecified, unspecified as acute or chronic, without hemorrhage or perforation; N18.9 Chronic kidney disease, unspecified; E11.22 Type 2 diabetes mellitus with diabetic chronic kidney disease; I12.9 Hypertensive chronic kidney disease with stage 1 through stage 4 chronic kidney disease, or unspecified chronic kidney disease; G47.33 Obstructive sleep apnea (adult) (pediatric); Z90.49 Acquired absence of other specified parts of digestive tract; J44.9 Chronic obstructive pulmonary disease, unspecified; Z86.73 Personal history of transient ischemic attack (TIA), and cerebral infarction without residual deficits; Z91.14 Patient's other noncompliance with medication regimen; Z86.711 Personal history of pulmonary embolism; Z86.718 Personal history of other venous thrombosis and embolism; Z79.01 Long term (current) use of anticoagulants; Z79.4 Long term (current) use of insulin
CPT/HCPCS: 36415; 71010; 78452; 80048; 81001; 82010; 82550; 82553; 82805; 82962; 84484; 85025; 85379; 85610; 85730; 93005; 93010; 93017; 93970; 96374; 96375; A9502; J1815; J1818; J2270; J2405; J2785; J7512

== ENCOUNTER 2016-12-20 15:47 | Emergency (ER) | payer MEDICARE ==
[2016-12-20 16:10] VITALS: BP 104/64
[2016-12-20 17:06] LABS: BUN/Creatinine Ratio 17.5; Calcium 9.4 mg/dL (8.4-10.2); Chloride 97.8 mmol/L (98-107); Potassium 4.7 mmol/L (3.6-5.0)
== END 2016-12-20 17:10 | disposition left against medical advice (07) ==
LOC: ED 15:47
DX: M79.1 Myalgia (principal); Z53.21 Procedure and treatment not carried out due to patient leaving prior to being seen by health care provider
CPT/HCPCS: 36415; 80048; 82962

== ENCOUNTER 2017-12-26 01:29 | Emergency (ER) | payer MEDICARE ==
[2017-12-26] MEDS ORDERED: CATAPRES PO ONE (03:01)
[2017-12-26 03:07] LABS: Basophils % (Auto) 0.4 % (0.0-1.8); Eosinophils % (Auto) 0.1 % (0.0-4.3); Hematocrit 33.4 % (30.3-42.9); Lymphocytes # (Auto) 1.4 K/mm3 (1.2-5.4); Lymphocytes % (Auto) 14.1 % (13.4-35.0); Mean Corpuscular HGB Conc 33 % (30-34); Mean Corpuscular Hemoglobin 32 pg (28-32); Mean Corpuscular Volume 97 fl (79-97); Monocytes # (Auto) 0.7 K/mm3 (0.0-0.8); Monocytes % (Auto) 6.7 % (0.0-7.3); Platelet Count 372 K/mm3 (140-440); Red Blood Count 3.46 M/mm3 (3.65-5.03); Red Cell Distribution Width 13.2 % (13.2-15.2)
[2017-12-26 03:17] LABS: BUN/Creatinine Ratio 14; Blood Urea Nitrogen 15 mg/dL (7-17); Calcium 8.7 mg/dL (8.4-10.2); Hemolysis Index 0
[2017-12-26 03:20] LABS: INR 1.5 (0.87-1.13)
[2017-12-26 03:21] LABS: Partial Thromboplastin Time 29.7 Sec. (24.2-36.6)
[2017-12-26 03:28] LABS: Bilirubin,Urine NEG (Negative); Blood,Urine LG (Negative); Color,Urine Yellow (Yellow); Hyaline Casts,Urine 3 /LPF; Protein,Urine <15 mg/dL mg/dL (Negative); Urobilinogen,Urine < 2.0 mg/dL (<2.0)
[2017-12-26 03:34] LABS: Amphetamine Screen,Urine PRESUMPTIVE NEGATIVE; Benzodiazepines Screen,Urine PRESUMPTIVE NEGATIVE; Cannabinoid Screen,Urine PRESUMPTIVE NEGATIVE; Cocaine Screen,Urine PRESUMPTIVE NEGATIVE; Methadone Screen,Urine PRESUMPTIVE NEGATIVE; Opiate Screen,Urine PRESUMPTIVE NEGATIVE
--- NOTE | 2017-12-26 04:27 | Cat Scan Report ---
FINAL REPORT PROCEDURE: CT HEAD/BRAIN WO CON TECHNIQUE: Computerized tomography of the head was performed without contrast material. HISTORY: headache COMPARISON: No prior studies are available for comparison. FINDINGS: Skull and scalp: Normal. Paranasal sinuses: Normal. Ventricles and subarachnoid spaces: Normal. Cerebrum: No evidence of hemorrhage, acute infarction or mass . Cerebellum and brainstem: No evidence of hemorrhage, acute infarction or mass. Vasculature: Normal. Comments: None. IMPRESSION: Normal Examination
[2017-12-26] MEDS ORDERED: REGLAN IV ONE (06:45)
[2017-12-26] MEDS ORDERED: TORADOL IV ONE (06:45)
[2017-12-26] MEDS ORDERED: APRESOLINE IV ONE (06:45)
[2017-12-26 08:05] VITALS: BP 125/65
--- NOTE | 2017-12-26 08:28 | Emergency Department Report ---
HPI - General Chief Complaint: Medical Clearance Time Seen by Provider: 12/26/17 06:35 - HPI HPI: The patient is 37-year-old female who presents for evaluation of headache and elevated blood pressure. The patient reports headache since noon yesterday, moderate in severity, aching in quality, exacerbated with bright lights. She also shares that her blood pressure has been elevated and that she has been noncompliant with antihypertensives. The patient denies fever, head injury, chest pain, dyspnea, abdominal pain, flank pain, decreased urination, neck pain , neck stiffness, vision or hearing changes, smell or taste changes, paresthesias, facial drooping, slurred speech, seizure-like activity, urine or bowel incontinence or retention, or other focal neurological deficit. ED Past Medical Hx - Past Medical History Hx Hypertension: Yes Hx CVA: Yes Hx Congestive Heart Failure: No Hx Diabetes: Yes Hx Deep Vein Thrombosis: Yes Hx Pulmonary Embolism: Yes Hx Renal Disease: Yes Hx Psychiatric Treatment: Yes (Depression and Anxiety) Hx Asthma: Yes Hx COPD: No Additional medical history: lupus, fibromyalgia, reynauds, hypothyroidism - Surgical History Hx Cholecystectomy: Yes Additional Surgical History: ivc filter - Social History Smoking Status: Never Smoker Substance Use Type: None - Medications Home Medications: Home Medications Medication Instructions Recorded Confirmed Last Taken Type Albuterol *Only Ed* [Proventil 1 puff IH PRN PRN 03/24/14 12/26/17 Unknown History 0.5% NEBS] Albuterol [Proventil Tab] 1 tab PO DAILY 03/24/14 12/26/17 03/24/14 History Alendronate Sodium [Fosamax] 35 mg PO QWEEK 03/24/14 12/26/17 Unknown History FLUoxetine HCL [PROzac] 20 mg PO QDAY 03/24/14 12/26/17 03/24/14 History Famotidine [Pepcid] 40 mg PO DAILY 03/24/14 12/26/17 03/24/14 History Insulin Aspart See Protocol SUB-Q HS 12/18/16 12/26/17 Unknown History Insulin Glargine See Protocol SUB-Q DAILY 12/18/16 12/26/17 Unknown History Warfarin [Coumadin] 7.5 mg PO DAILY@1700 #30 tablet 12/20/16 12/26/17 Unknown Rx Mycophenolate [Cellcept] 500 mg PO BID 10/21/17 04/15/18 Unknown History Spironolactone [Aldactone] 25 unit PO DAILY 07/03/17 12/26/17 Unknown History Synthroid 75 mcg PO DAILY 07/03/17 12/26/17 Unknown History predniSONE [Deltasone] 40 mg PO DAILY #80 tablet 07/05/17 12/26/17 Unknown Rx Buspar 10 mg PO DAILY 12/26/17 12/26/17 Unknown History Gabapentin 300 mg PO BID 12/26/17 12/26/17 Unknown History Losartan [Cozaar] 100 mg PO QDAY #30 tablet 12/26/17 Unknown Rx ED Review of Systems ROS: Stated complaint: HIGH BLOOD PRESSURE,HEADACHE Other details as noted in HPI Constitutional: denies: fever ENT: denies: throat or neck pain Respiratory: denies: cough, shortness of breath Cardiovascular: denies: chest pain Endocrine: denies unexplained weight loss or gain Gastrointestinal: denies: abdominal pain, nausea Genitourinary: denies: dysuria Musculoskeletal: denies: leg swelling Skin: denies: rash Neurological: reports: headache Hematological/Lymphatic: denies: easy bleeding or easy bruising Psych: denies sadness or hopelessness Physical Exam - Physical Exam Vital Signs: Vital Signs 12/26/17 12/26/17 12/26/17 02:20 02:39 03:16 Temperature 99.1 F 99.1 F Pulse Rate 105 H 107 H 107 H Respiratory 18 16 Rate Blood Pressure 186/113 186/113 186/113 Blood Pressure [Left] O2 Sat by Pulse 97 98 Oximetry 12/26/17 12/26/17 12/26/17 08:00 08:05 08:06 Temperature Pulse Rate 71 Respiratory 18 18 Rate Blood Pressure 125/65 Blood Pressure [Left] O2 Sat by Pulse 98 Oximetry 12/26/17 08:22 Temperature 98.3 F Pulse Rate 71 Respiratory 18 Rate Blood Pressure Blood Pressure 125/65 [Left] O2 Sat by Pulse 98 Oximetry Physical Exam: General: well-nourished, well-developed, no acute distress Head: Normocephalic, atraumatic Eyes: normal sclera ENT: Mucous membranes are pale and dry Neck: No neck stiffness, no cervical adenopathy Respiratory: Breath sounds equal bilaterally, no wheezing, rales, or rhonchi Cardio: S1 and S2 present, no murmurs, rubs, gallops, capillary refill is delayed Abdomen: Normoactive bowel sounds, soft abdomen, no rigidity, no guarding or rebound tenderness Chest WALL/Back: No tenderness to palpation of the chest wall, no CVA tenderness with percussion Musc: No pitting edema Skin: No rash Neuro: alert oriented x4, normal cognition, speech normal, PERRL, EOM intact, no facial drooping, no uvula or tongue deviation on protrusion, no deficit with rotation of neck or shoulder shrug, no obvious gross motor deficit in the upper or lower extremities with flexion or extension at the shoulder, elbow, wrist, hip, knee, or ankle bilaterally, no obvious gross sensation deficit to crude touch or 2 pt discrimination, 2+ symmetric reflexes on DTR testing, no coordination deficit with [id number] or [id number] testing, Babinski downgoing, romberg negative, patient able to to ambulate without abnormal gait Psych: Normal affect ED Course Vital Signs 12/26/17 12/26/17 12/26/17 02:20 02:39 03:16 Temperature 99.1 F 99.1 F Pulse Rate 105 H 107 H 107 H Respiratory 18 16 Rate Blood Pressure 186/113 186/113 186/113 Blood Pressure [Left] O2 Sat by Pulse 97 98 Oximetry 12/26/17 12/26/17 12/26/17 08:00 08:05 08:06 Temperature Pulse Rate 71 Respiratory 18 18 Rate Blood Pressure 125/65 Blood Pressure [Left] O2 Sat by Pulse 98 Oximetry 12/26/17 08:22 Temperature 98.3 F Pulse Rate 71 Respiratory 18 Rate Blood Pressure Blood Pressure 125/65 [Left] O2 Sat by Pulse 98 Oximetry ED Medical Decision Making - Lab Data Result diagrams: 12/26/17 02:51 12/26/17 02:51 - Medical Decision Making The patient was seen and examined by myself. The patient is placed on a residential monitor and continuous pulse ox. On initial evaluation, the patient was found to be in no distress. As there are no neuro deficits or other findings on examination concerning for acute intracranial disease process, and as the patient states that symptoms are consistent with previous headaches, MRI of the head will not be obtained at this time. CT scan the head is negative for acute intracranial disease process. IV access is established and the patient is given IV Reglan, and IV Toradol for headache. The patient is given IV hydralazine for elevated blood pressure. Lab results are grossly unremarkable. The patient was reevaluated and reported that their symptoms were markedly improved. On reexamination the patient's blood pressure was found to decrease to within normal range, and the patient's tachycardia has resolved as well. The patient is stable for discharge with outpatient follow-up. The patient is given follow-up and return instructions. The patient expressed understanding and agreed with the plan. The patient is discharged in stable condition. Critical care attestation.: If time is entered above; I have spent that time in minutes in the direct care of this critically ill patient, excluding procedure time. ED Disposition Clinical Impression: Acute non intractable tension-type headache, Hypertensive urgency, Acute hyperglycemia Disposition: TO HOME OR SELFCARE Is pt being admited?: No Does the pt Need Aspirin: No Condition: Stable Instructions: Acute Headache (ED), Hypertension (ED) Prescriptions: Losartan [Cozaar] 100 mg PO QDAY #30 tablet Referrals: LARRY WEAVER MD [Primary Care Provider] - 3-5 Days Time of Disposition: 08:25
== END 2017-12-26 11:50 | disposition home or self-care (01) ==
LOC: ED 01:29
DX: G44.209 Tension-type headache, unspecified, not intractable (principal); I16.0 Hypertensive urgency; E11.65 Type 2 diabetes mellitus with hyperglycemia; I10 Essential (primary) hypertension; J45.909 Unspecified asthma, uncomplicated; F41.8 Other specified anxiety disorders; Z90.49 Acquired absence of other specified parts of digestive tract; Z86.718 Personal history of other venous thrombosis and embolism; Z79.4 Long term (current) use of insulin
CPT/HCPCS: 36415; 70450; 80048; 80307; 81001; 84443; 84703; 85025; 85610; 85730; 96374; 96375; 99285; G0480; J1885; J2765; 80320; J0360